=== PATIENT | female | born 1930 | race Caucasian/White ===

== ENCOUNTER → 2018-05-10 | Outpatient (CLI) | payer MEDICARE, BC ==
--- NOTE | 2018-05-10 15:51 | RADIOLOGY REPORT (SQ) ---
EXAM DESCRIPTION: CT CHEST WITHOUT COMPLETED DATE/TIME: 05/10/2018 10:57 am REASON FOR STUDY: CHEST WALL PAIN (R07.89) R07.89 OTHER CHEST PAIN COMPARISON: None. TECHNIQUE: CT scan performed of the chest without intravenous contrast. Images reviewed with lung, soft tissue and bone windows. Reconstructed coronal and sagittal MPR images reviewed. All images st ored on PACS. All CT scanners at this facility use dose modulation, iterative reconstruction, and/or weight based d osing when appropriate to reduce radiation dose to as low as reasonably achievable (ALARA). [facility]: Dose Right [facility]: CareDose [facility]: Dose Right [facility]: Teradose 4D [facility]: SigFig RADIATION DOSE: CT Rad equipment meets quality standard of care and radiation dose reduction techniq ues were employed. CTDIvol: 4.3 mGy. DLP: 155 mGy-cm. mGy. LIMITATIONS: No technical limitations. FINDINGS: LUNGS AND PLEURA: No masses, infiltrates, or pneumothorax. No pleural effusions or pleura l calcifications. HILAR AND MEDIASTINAL STRUCTURES: No adenopathy or masses. Moderate sized retrocardiac hiatal hernia . HEART AND VASCULAR STRUCTURES: Ascending thoracic aorta 4 cm in diameter. No pericardial effusion. Heavily calcified [place] coronary arteries UPPER ABDOMEN: No significant findings. Limited exam. THYROID AND OTHER SOFT TISSUES: 4 cm nodule left lower pole thyroid BONES: Nonunited subacute sternal fracture with minimal surrounding callus, best shown on sagittal re construction images 30-33, and coronal image 16. Thoracic spine, ribs unremarkable. HARDWARE: None in the chest. OTHER: No other significant findings. IMPRESSION: Nonunited subacute sternal fracture with minimal surrounding callus. TECHNICAL DOCUMENTATION: JOB ID: [id number] Quality ID # [id number]: Final reports with documentation of one or more dose reduction techniques (e.g., Au tomated exposure control, adjustment of the mA and/or kV according to patient size, use of iterative reconstruction technique) 2010 [employer]- All Rights Reserved Reading location - IP/workstation name: [email or web address]
== END ==
LOC: RAD 10:39
PROVIDERS: ATTEND Family Medicine
DX: S22.20XK Unspecified fracture of sternum, subsequent encounter for fracture with nonunion (principal); X58.XXXD Exposure to other specified factors, subsequent encounter; R07.89 Other chest pain; E04.1 Nontoxic single thyroid nodule
CPT/HCPCS: 71250